=== PATIENT | female | born 1945 ===

== ENCOUNTER 2017-06-05 20:26 | Emergency (ER) | payer OTHER, MEDICAID ==
[~2017-06-05] VITALS: Ht 142.2 cm; Wt 73.9 kg
[2017-06-05] MEDS ORDERED: predniSONE 50 MG TABLET PO ONE (21:00)
[2017-06-05] MEDS ORDERED: FAMOTIDINE 20 MG TABLET PO ONE (21:00)
--- NOTE | 2017-06-05 21:00 | NUR ---
ER MD W/ PATIENT IN TRIAGE AREA FOR MSE W/ ASSISTANCE FROM [facility].
--- NOTE | 2017-06-05 21:07 | NUR ---
PT PRESENTS W/ RASH W/ ITCHING COVERING BODY WELL FACIAL SWELLING. PT ALSO C/O A SORE ON HER RT BIG TOE, FOR WHICH SHE STATES SHE WAS GOING TO SEE HER PRIMARY DOC FOR TOMORROW. PT IS UNABLE TO RECALL HER HOME MEDICATIONS.
[2017-06-05] MEDS ORDERED: FAMOTIDINE 20 MG TABLET ONE (21:31)
[2017-06-05] MEDS ORDERED: predniSONE 50 MG TABLET ONE (21:31)
[2017-06-05 22:03] LABS: BASOPHILS % (AUTO) 0.3 % (0.0-2.0); EOSINOPHILS % (AUTO) 0.1 % (0.0-7.0); HEMATOCRIT 41.8 % (31.2-41.9); HEMOGLOBIN 14.1 g/dL (10.9-14.3); LYMPHOCYTES # (AUTO) 1.8 K/uL (20.0-40.0); LYMPHOCYTES % (AUTO) 12.7 % (20.5-51.5); MEAN CORPUSCULAR HEMOGLOBIN 30.4 uug (24.7-32.8); MEAN CORPUSCULAR HGB CONC 34 g/dL (32.3-35.6); MEAN CORPUSCULAR VOLUME 89.7 fL (75.5-95.3); MONOCYTES # (AUTO) 0.3 K/uL (2.0-10.0); MONOCYTES % (AUTO) 2.3 % (0.0-11.0); NEUTROPHILS # (AUTO) 11.7 K/uL (1.8-8.9); NEUTROPHILS % (AUTO) 84.6 % (38.5-71.5); PLATELET COUNT (AUTO) 265 K/uL (179-408); RED BLOOD CELL COUNT(AUTO) 4.66 MIL/uL (3.63-4.92); WHITE BLOOD COUNT (AUTO) 13.9 K/uL (3.8-11.8)
[2017-06-05 22:17] LABS: ALANINE AMINOTRANSFERASE 21 U/L (14-59); ALKALINE PHOSPHATASE 59 U/L (50-136); ASPARTATE AMINOTRANSFERASE 19 U/L (15-37); BILIRUBIN,DIRECT 0.1 mg/dL (0.0-0.2); BILIRUBIN,TOTAL 0.4 mg/dL (0.2-1.0); CARBON DIOXIDE 24 mmol/L (21-32); CHLORIDE 101 mmol/L (98-107); CREATININE 1.1 mg/dL (0.6-1.3); GLUCOSE 159 mg/dL (74-106); POTASSIUM 4.1 mmol/L (3.5-5.1); UREA NITROGEN, BLOOD 17 mg/dL (7-18)
--- NOTE | 2017-06-05 22:17 | NUR ---
PT AMBULATED INDEPENDENTLY FROM BED TO RESTROOM W/ USE OF WALKER. GAIT STEADY. DENIES FEELINGS OF N/V OR DIZZINESS. NO DISTRESS NOTED.
--- NOTE | 2017-06-05 23:00 | NUR ---
XRAY AT PT BEDSIDE.
[2017-06-05] MEDS ORDERED: ATOR20TA PO (23:14)
[2017-06-05] MEDS ORDERED: MAGN400T6 PO (23:14)
[2017-06-05] MEDS ORDERED: [UNRECOGNIZED DRUG - CODE] TP (23:14)
[2017-06-05] MEDS ORDERED: SODI45SP10 NS (23:14)
[2017-06-05] MEDS ORDERED: GABA-534 PO (23:14)
[2017-06-05] MEDS ORDERED: TEARS NATURAL EACHEYE (23:14)
[2017-06-05] MEDS ORDERED: POLY17PO3 PO (23:14)
[2017-06-05] MEDS ORDERED: LIDO5JEL3 MC (23:14)
[2017-06-05] MEDS ORDERED: MINE3.5O28 OP (23:14)
[2017-06-05] MEDS ORDERED: METF10002 PO (23:14)
[2017-06-05] MEDS ORDERED: CODE118S2 PO (23:14)
[2017-06-05] MEDS ORDERED: FLUO20CA36 PO (23:14)
[2017-06-05] MEDS ORDERED: DONE5TAB7 PO (23:14)
[2017-06-05] MEDS ORDERED: TROS60CA3 PO (23:14)
[2017-06-05] MEDS ORDERED: TOPI25TA PO (23:14)
[2017-06-05] MEDS ORDERED: MIRA50TA PO (23:14)
[2017-06-05] MEDS ORDERED: CALC-261 PO (23:14)
[2017-06-05] MEDS ORDERED: EMOL113C2 TP (23:14)
[2017-06-05] MEDS ORDERED: DOCU100C36 PO (23:14)
[2017-06-05] MEDS ORDERED: ACET325T53 PO (23:14)
[2017-06-05] MEDS ORDERED: KETO10DR3 OP (23:14)
[2017-06-05] MEDS ORDERED: ASPI81TA31 PO (23:14)
[2017-06-05] MEDS ORDERED: GUAI100S9 PO (23:14)
[2017-06-05] MEDS ORDERED: MEMA5TAB PO (23:14)
[2017-06-05] MEDS ORDERED: QUET25TA PO (23:14)
[2017-06-05] MEDS ORDERED: OMEG10006 PO (23:14)
[2017-06-05] MEDS ORDERED: SENN-167 PO (23:14)
[2017-06-05] MEDS ORDERED: ALLO100T PO (23:14)
[2017-06-05] MEDS ORDERED: diphenhydrAMINE 50 MG/1 ML VIAL IV ONE (23:30)
[2017-06-05] MEDS ORDERED: diphenhydrAMINE 50 MG/1 ML VIAL ONE (23:46)
--- NOTE | 2017-06-05 23:49 | NUR ---
PT RESTING IN A POSITION OF COMFORT. NO SIGNS OF DISTRESS NOTED. IMPROVED ITCHING REPORTED PER PATIENT.
--- NOTE | 2017-06-06 00:26 | NUR ---
[facility] CALLED W/ UPDATED STATUS/PENDING DISCHARGE OF PT. WAS TOLD THAT THEY DO NOT HAVE TRANSPORT SERVICES AVAILABLE.
--- NOTE | 2017-06-06 00:52 | NUR ---
Patient discharged to home in stable conditon. Written and verbal after care instructions given. Patient verbalizes understanding of instructions. Pt ambulated from ER w/ steady gait w/ use of walker. Pt took all personal belongings. Pt will be taking a taxi back to her home.
[2017-06-06 00:54] VITALS: BP 132/85
== END 2017-06-06 01:01 | disposition home or self-care (01) ==
LOC: ER 20:26
DX: T78.40XA Allergy, unspecified, initial encounter (principal); G89.29 Other chronic pain; E11.9 Type 2 diabetes mellitus without complications; E78.5 Hyperlipidemia, unspecified; F03.90 Unspecified dementia, unspecified severity, without behavioral disturbance, psychotic disturbance, mood disturbance, and anxiety; H40.9 Unspecified glaucoma; K21.9 Gastro-esophageal reflux disease without esophagitis; Z79.82 Long term (current) use of aspirin
CPT/HCPCS: 36415; 70030-TC; 71045; 85025; 85730; 93005; A4663; J1200; J7512